=== PATIENT | female | born 1975 | race Caucasian/White ===

== ENCOUNTER → 2020-10-13 | Outpatient (CLI) | payer BC ==
--- NOTE | 2020-10-13 09:18 | RAD ---
EXAM: Left foot, 3 views. HISTORY: Pain. COMPARISON: None. FINDINGS: 3 views of the left foot are obtained. There is a healed distal fifth metatarsal fracture. There is mild first metatarsal joint spurring and subchondral sclerosis. There is a small plantar spu r. There is cortical irregularity along the anterior talus likely due to chronic degenerative change or sequela of remote injury. IMPRESSION: 1. No acute osseous finding. 2. Healed distal fifth metatarsal fracture and suspected chronic degenerative or remote posttraumatic change involving the anterior talus. 3. Mild first metatarsophalangeal joint osteoarthritis. Electronically signed by: Serena Mo MD (10/13/2020 9:16 AM) [id number]
== END ==
LOC: RAD 08:40
PROVIDERS: ATTEND Podiatrist
DX: M19.072 Primary osteoarthritis, left ankle and foot (principal); M77.32 Calcaneal spur, left foot
CPT/HCPCS: 73630